=== PATIENT | female | born 1985 | race Caucasian/White ===

== ENCOUNTER 2021-05-13 18:22 | Emergency (ER) | payer BC, SELFPAY ==
--- NOTE | ~2021-05-13 | XR_ITS ---
EXAMINATION: XR HAND, RIGHT CLINICAL INFORMATION: Right hand pain. COMPARISON: None TECHNIQUE: PA, lateral, and oblique views of the right hand. FINDINGS: There is acute fracture of the distal metaphysis of the fifth metacarpal with angulation, apex dorsally. The remainder the digits are intact. The carpal bones are normally aligned. The distal radius and ulna are intact. XR/XR hand RT 2V IMPRESSION: Acute distal fifth metacarpal fracture.
[2021-05-13 19:59] VITALS: BP 128/67; PULSE 95; RESP 16; TEMP 36.7; O2SAT 99; BMI 24.9
--- NOTE | 2021-05-13 21:06 | ED_ITS ---
HPI - Extremity Problem General Chief complaint: Extremity Problem Stated complaint: Hand injury Source: patient Mode of arrival: ambulatory Limitations: no limitations History of Present Illness HPI Narrative: 35-year-old female presents with right hand pain bruising and swelling after punching a wall. MD Complaint: extremity pain and extremity swelling Onset (ago): hour(s) (Several hours prior to arrival) Pain Consistency: constant Location: right and upper extremity Severity scale (1-10): 7 Quality: aching Radiation: none Relieving factors: nothing Exacerbating factors: range of motion and palpation Associated symptoms: denies other symptoms Related Data Allergies Allergy/AdvReac Type Severity Reaction Status Date / Time No Known Allergies Allergy Verified 05/13/21 21:56 Review of Systems Review of Systems: Constitutional: No Fever, No Chills ENT/Mouth: No Ear Pain, No Hoarseness, No sore throat Eyes: No Eye Pain, No Swelling, No Redness, No Foreign Body Cardiovascular: No Chest Pain, No SOB Respiratory: No Cough, No Dyspnea Gastrointestinal: No Nausea, No Vomiting, No Diarrhea, No abdominal Pain Genitourinary: No Dysuria, No Hematuria Musculoskeletal: positive right hand pain pain, No Myalgias, No Joint Swelling Skin: No Skin lacerations, No rash Neuro: No Weakness, No Numbness, No Paresthesias, No Loss of Consciousness, No Dizziness, No Headache Psych: No Anxiety/Panic, No Depression Heme/Lymph: no easy bruising, no Lymphadenopathy Endocrine: No Polyuria, No Polydipsia Yes all other systems are reviewed and are negative [facility] Past Medical History Attestation statement: The following information was validated with the patient. Source: old records reviewed Social History Social History Advance Directives: No Advance Directives Information Provided: Yes Patient : Yes Physical Exam Vital Signs: Vital Signs: Last Vital Signs Temp 98.1 F 05/13/21 19:59 Pulse 95 05/13/21 19:59 Resp 16 05/13/21 19:59 BP 128/67 05/13/21 19:59 Pulse Ox 99 05/13/21 19:59 BMI result Body Mass Index 24.9 Appearance: Alert. Oriented X3. No acute distress. Eyes: Pupils equal, round and reactive to light. ENT: Pharynx normal. Neck: Normal inspection. Neck supple. CVS: Normal heart rate and rhythm. Pulses normal. Respiratory: No respiratory distress. Breath sounds normal. Abdomen: Soft and nontender. Skin: Skin warm and dry. Normal skin color. Normal skin turgor. Extremities: Positive right 5th metatarsal bruising swelling and pain to palpation. Decreased range of motion secondary to pain. Brisk capillary refilling full pulses to upper extremities. Neuro: No motor deficit. No sensory deficit. Course Course Course Narrative: 35-year-old female presents with right hand pain after punching a wall. Patient is 30 weeks , does not report any physical trauma or abuse. States that she was angry. No other complaints at this time. Right hand x-ray positive for 5th metatarsal boxer's fracture. Will place patient in a volar splint. Refer to Hand surgery. Patient was advised to use Tylenol as needed for pain management. 10:00 p.m. Approximately 30 minutes after volar splint placement, patient continues with brisk capillary refill a full range of motion. Neurovascularly intact. No indication of compartment syndrome. Patient verbalized understanding of and agrees plan of care discharge home. MDM - Extremity (Nontraumatic) MDM Narrative Medical decision making narrative: Fracture, dislocation Medical Records Attestation: I reviewed the patient's medical records. Lab Data Attestation: I reviewed the patient's lab results. Imaging Data Hand x-ray: Attestation: I personally reviewed and interpreted this imaging study as follows: Radiologist's impression: EXAMINATION: XR HAND, RIGHT CLINICAL INFORMATION: Right hand pain.? COMPARISON: None? TECHNIQUE: PA, lateral, and oblique views of the right hand. FINDINGS: There is acute fracture of the distal metaphysis of the fifth metacarpal with angulation, apex dorsally. The remainder the digits are intact. The carpal bones are normally aligned. The distal radius and ulna are intact. XR/XR hand RT 2V IMPRESSION: Acute distal fifth metacarpal fracture. Discharge Plan Discharge Clinical Impression: Boxer's fracture Patient Disposition: Home, Self-Care Instructions: Boxer Fracture (ED), R.I.C.E. Treatment (ED) Additional Instructions: You were evaluated for right hand pain. X-rays indicates a 5th metatarsal boxer's fracture. Please follow-up with hand surgery. Please use Tylenol as needed for pain management. Please keep the splint in place until you see orthopedics. Thank you for choosing this emergency department for evaluation. Please follow-up with primary care physician as needed. Return to the emergency department for any new, concerning, or worsening symptoms. Referrals: Stephanie Ball MD [Physician] - 2 days (Fifth metatarsal boxer's fracture) Interventions: ED Discharge Assessment Last Done: 05/13/21 22:39 Discharge Date/Time: 05/13/21 23:07
== END 2021-05-13 23:07 | disposition home or self-care (01) ==
PROVIDERS: Emergency Provider Emergency Medicine
DX: S62.336A Displaced fracture of neck of fifth metacarpal bone, right hand, initial encounter for closed fracture (principal); W22.09XA Striking against other stationary object, initial encounter; Y93.9 Activity, unspecified; Y92.9 Unspecified place or not applicable; Y99.9 Unspecified external cause status
CPT/HCPCS: 29125; 73120; 99283

== ENCOUNTER 2021-05-22 07:12 | Outpatient (REF) | payer BC, SELFPAY | END 2021-05-22 07:13 | disposition home or self-care (01) | LOC: HO.HOSX 07:12 | PROVIDERS: Visit Provider Physician Assistant | DX: S62.306A Unspecified fracture of fifth metacarpal bone, right hand, initial encounter for closed fracture (principal); X58.XXXA Exposure to other specified factors, initial encounter; Y93.9 Activity, unspecified; Y92.9 Unspecified place or not applicable; Y99.9 Unspecified external cause status; Z33.1 Pregnant state, incidental | CPT/HCPCS: 29085 ==

== ENCOUNTER 2021-06-20 08:20 | Outpatient (REF) | payer BC, SELFPAY ==
--- NOTE | ~2021-06-20 | XR_ITS ---
EXAMINATION: XR HAND, RIGHT CLINICAL INFORMATION: Right hand pain. COMPARISON: 05/13/2021 TECHNIQUE: PA, lateral, and oblique views of the right hand. FINDINGS: There is again noted to be fracture of the 5th metacarpal head with radial and volar angulation of the distal fracture fragment. No change in alignment is evident. There has been some increase in osteopenia about the fracture site. There is a small amount of periosteal new bone formation present without definite bony union. XR/XR hand RT min 3V IMPRESSION: No significant change in alignment of healing fracture of the head of the 5th metacarpal.
== END 2021-06-20 08:21 | disposition home or self-care (01) ==
LOC: HO.HOSX 08:20
PROVIDERS: Visit Provider Orthopaedic Surgery
DX: S62.306D Unspecified fracture of fifth metacarpal bone, right hand, subsequent encounter for fracture with routine healing (principal)
CPT/HCPCS: 73130

== ENCOUNTER 2021-07-25 08:22 | Outpatient (REF) | payer BC, SELFPAY ==
--- NOTE | ~2021-07-25 | XR_ITS ---
EXAMINATION: XR HAND, RIGHT CLINICAL INFORMATION: Pain of right hand COMPARISON: 05/13/2021 and 06/20/2021 TECHNIQUE: PA, lateral, and oblique views of the right hand. FINDINGS: Periarticular osteopenia of the hand and wrist. Bones have normal alignment and joint spaces are maintained. There is a progressively healing angulated fracture of the distal fifth metacarpal neck, with approximately 45 degrees dorsoulnar apex angulation at the fracture site. No new fractures. XR/XR hand RT min 3V IMPRESSION: Progressively healing, angulated boxers fracture of the fifth metacarpal.
== END 2021-07-25 08:23 | disposition home or self-care (01) ==
LOC: HO.HOSX 08:22
PROVIDERS: Visit Provider Orthopaedic Surgery
DX: S62.306D Unspecified fracture of fifth metacarpal bone, right hand, subsequent encounter for fracture with routine healing (principal)
CPT/HCPCS: 73130

== ENCOUNTER 2023-09-21 07:19 | Emergency (ER) | payer OTHER, SELFPAY ==
--- NOTE | 2023-09-21 07:29 | ED_ITS ---
HPI - General Adult General Chief complaint: Eye Problems Stated complaint: Eye irritation Time Seen by Provider: 09/21/23 07:28 Source: patient Mode of arrival: ambulatory Limitations: no limitations History of Present Illness HPI narrative: 37-year-old female presents with irritation to right eye since yesterday reporting associated redness, itchiness and discharge. Discharge is worse in the morning. No associated trauma. No recent URI and daughter at home sick with URI sx. Denies CP, SOB, nausea, vomiting, abd pain, headache, vision changes, dizziness, weakness, Related Data Home Medications ?Medication ?Instructions ?Recorded ?Confirmed prenat.vits,johnathan,[id number] 1 tab PO BEDTIME 05/22/21 Previous Rx's ?Medication ?Instructions ?Recorded erythromycin 5 mg/gram (0.5 %) eye 1 appl ophthalmic (eye) TID 5 days 09/21/23 ointment #3.5 grams Allergies Allergy/AdvReac Type Severity Reaction Status Date / Time No Known Allergies Allergy Verified 09/21/23 07:33 Review of Systems Review of Systems: Yes all other systems are reviewed and are negative [facility] Past Medical History Attestation statement: The following information was validated with the patient. Source: old records reviewed and nursing notes reviewed Social History Social History Advance Directives: No Advance Directives Information Provided: Yes Current occupational status: employed Current occupation: rt hand. safety mngr at [employer] Physical Exam ED Vital Signs: Vital Signs - 24 hr 09/21/23 07:32 Temperature 98.8 F Pulse Rate 94 Respiratory Rate 16 Blood Pressure 128/83 Pulse Oximetry 99 Oxygen Delivery Method Room Air BMI result Body Mass Index 20.0 vss Appearance: Alert.? Oriented X3.? No acute distress.? Head: Normocephalic, atraumatic, no step-offs or deformities Eyes: Pupils equal, round and reactive to light.?conjunctival injection of the right eye. With small amount of yellow/green discharge noted to right eye. Extraocular movements intact and pain-free. No orbital cellulitis noted. Patient able to read sign across the room. Patient on her phone without difficulty Neck: Normal inspection.? Neck supple.? CVS: Normal heart rate and rhythm.? Pulses normal.? Respiratory: No respiratory distress.? Breath sounds normal.? Skin: Skin warm and dry.? Normal skin color.? Normal skin turgor.? Extremities: No lower extremity edema.? No calf ttp. 5/5 strength to bilateral upper and lower extremities Neuro: Oriented X 3.? No motor deficit.? No sensory deficit. CN 2-12 intact Medical Decision Making Medical Decision Making [facility] Narrative: 08 29-year-old female presents with red eye redness, discharge, worse in the morning started yesterday. No known sick, Physical exam with conjunctival injection of the right eye. With small amount of yellow/green discharge noted to right eye. Extraocular movements intact and pain-free. No orbital cellulitis noted. Patient able to read sign across the room. Patient on her phone without difficulty History and physical exam concerning for bacterial conjunctivitis versus viral conjunctivitis. Unlikely orbital or periorbital cellulitis. Unlikely acute closed angle glaucoma wet macular degeneration. No signs of corneal abrasion or corneal ulcer. Plan will discharge patient home with erythromycin. Educated patient on diagnosis and treatment plan, answered all question, patient verbalizes understanding. At this time patient will be discharged home, advised to return with new or worsening symptoms. Educated on worrisome signs and symptoms and when to return. At this time I feel comfortable discharge home. Differential Diagnosis Differential Diagnoses: The differential diagnosis associated with the presentation includes History and physical exam concerning for bacterial conjunctivitis versus viral conjunctivitis. Unlikely orbital or periorbital cellulitis. Unlikely acute closed angle glaucoma wet macular degeneration. No signs of corneal abrasion or corneal ulcer. Admission/Observation Consideration of admission/observation: Escalation of care including admission/observation considered unlikely Lab Data [facility] Lab Attestation statement: I reviewed the patient's lab results. External Record Review External record reviewed: Office record, Outpatient record and Outside ED record Prescription Management I considered prescription management with: Antibiotic Chronic Conditions Patient?s care impacted by: Other (jose fx ) Discharge Plan Discharge Clinical Impression: Conjunctivitis Patient Disposition: Home, Self-Care Instructions: Conjunctivitis (ED) Additional Instructions: Take your medications as prescribed. If you were prescribed antibiotics today, it is important that you take your medication to their entirety, do not skip any doses, do not finish them early. Follow-up with your primary care provider this week. Return to the emergency department with new or worsening symptoms. Such as fevers, chills, chest pain, shortness of breath, nausea, vomiting, dizziness, headache, vision changes, lethargy In case of emergency call 911 Wash your hands well Prescriptions: New erythromycin 5 mg/gram (0.5 %) ointment 1 appl ophthalmic (eye) TID 5 Days Qty: 3.5 0RF No Action prenat.vits,johnathan,[id number] Tablet 1 tab PO BEDTIME Referrals: Cassandra Avelar MD [Primary Care Provider] - 2 days Stand Alone Forms: Work/School Release Print Language: Kinyarwanda
[2023-09-21 07:32] VITALS: BP 128/83; PULSE 94; RESP 16; TEMP 37.1; O2SAT 99
[2023-09-21 08:42] VITALS: BP 106/72; PULSE 72; RESP 16; TEMP 36.8; O2SAT 99
== END 2023-09-21 08:43 | disposition home or self-care (01) ==
PROVIDERS: Emergency Provider Student in an Organized Health Care Education/Training Program; PCP Internal Medicine
DX: H10.9 Unspecified conjunctivitis (principal)
CPT/HCPCS: 99282; 99283